=== PATIENT | female | born 1965 | race Caucasian/White ===

== ENCOUNTER 2019-01-24 17:48 | Emergency (ER) | payer OTHER ==
--- NOTE | 2019-01-24 18:01 | UC ---
Ear Complaint HPI - HPI Summary HPI Summary: 53-year-old female who states that her right ear needs flushing because of ear wax. She did get some wax out but thinks there is more there. No recent cold symptoms. - History of Current Complaint Stated Complaint: RIGHT EAR CONCERN Time Seen by Provider: 01/24/19 18:01 Hx Obtained From: Patient ?: No Onset/Duration: Gradual Onset Severity Initially: Mild Severity Currently: None Aggravating Factors: Nothing Alleviating Factors: Nothing - Allergies/Home Medications Allergies/Adverse Reactions: Allergies Allergy/AdvReac Type Severity Reaction Status Date / Time No Known Allergies Allergy Verified 01/24/19 18:10 Home Medications: Home Medications Atenolol TAB* [Tenormin TAB* 25 MG] 0.5 tab DAILY 01/24/19 [History Confirmed ] PMH/Surg Hx/FS Hx/Imm Hx Previously Healthy: Yes Cardiovascular History: Hypertension - Family History Known Family History: Positive: Non-Contributory - Social History Lives: With Family Review of Systems All Other Systems Reviewed And Are Negative: Yes ENT: Positive: Other - Right ear feels plugged Is Patient Immunocompromised?: No Physical Exam Triage Information Reviewed: Yes Appearance: Well-Appearing, No Pain Distress, Well-Nourished Vital Signs Reviewed: Yes Eyes: Positive: Conjunctiva Clear ENT: Positive: Hearing grossly normal, Pharynx normal, TMs normal, Uvula midline , Other - There is no cerumen in either ear canal. Neck: Positive: Supple, Nontender, No Lymphadenopathy Respiratory: Positive: Lungs clear, Normal breath sounds, No respiratory distress, No accessory muscle use Cardiovascular: Positive: RRR, No Murmur, Pulses Normal, Brisk Capillary Refill Musculoskeletal Exam: Normal Neurological Exam: Normal Psychological Exam: Normal Skin Exam: Normal Ear Complaint Course/Dx - Course Course Of Treatment: Patient has been comfortable here. She is to follow up as needed if any worsening symptoms. She was advised not to put anything in her ears. - Differential Dx/Diagnosis Provider Diagnosis: Otalgia of right ear Discharge - Sign-Out/Discharge Documenting (check all that apply): Patient Departure All imaging exams completed and their final reports reviewed: No Studies - Discharge Plan Condition: Fair Disposition: HOME Patient Education Materials: Earache (ED) Referrals: No Primary Care Phys,NOPCP [Primary Care Provider] - [facility] [Outside] Additional Instructions: Your ears are completely clear right now. Recheck as needed if he develops any ear pain or worsening symptoms. - Billing Disposition and Condition Condition: FAIR Disposition: Home
[2019-01-24 18:15] VITALS: BP 149/86
== END 2019-01-24 18:45 | disposition home or self-care (01) ==
LOC: UCCORT 17:48
DX: H92.01 Otalgia, right ear (principal); I10 Essential (primary) hypertension; Z79.899 Other long term (current) drug therapy
CPT/HCPCS: 99201; G0463